=== PATIENT | female | born 1975 | race Caucasian/White ===

== ENCOUNTER 2019-09-04 20:19 | Emergency (ER) | payer SELFPAY ==
--- NOTE | 2019-09-04 21:14 | RAD ---
XR Foot Lt 3 View STANDARD History: Hit foot on.. Injury. Comparison: None. Findings: Lisfranc interval is maintained. Concern for tuft fracture small toe phalanx. Large plantar and dorsal calcaneal spurs. 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 Impression: Concern for a fracture of the tuft distal phalanx small toe.
== END 2019-09-04 23:30 | disposition home or self-care (01) ==
LOC: ERS 20:19
DX: S92.532A Displaced fracture of distal phalanx of left lesser toe(s), initial encounter for closed fracture (principal); J45.909 Unspecified asthma, uncomplicated; E11.9 Type 2 diabetes mellitus without complications; F32.9 Major depressive disorder, single episode, unspecified; F17.210 Nicotine dependence, cigarettes, uncomplicated; W22.8XXA Striking against or struck by other objects, initial encounter